=== PATIENT | male | born 1975 | race African-American/Black ===

== ENCOUNTER 2023-03-12 03:37 | Emergency (ER) | payer MEDICAID, SELFPAY ==
--- NOTE | ~2023-03-12 | XR_ITS ---
EXAMINATION: XR PELVIS CLINICAL INFORMATION: Pain. COMPARISON: None available. TECHNIQUE: AP view of the pelvis. FINDINGS: No acute fracture or subluxation. Symmetric SI joints. Pelvic rami and pubic symphysis are maintained. Small os acetabula/osteophyte adjacent to the right superior acetabulum. No significant soft tissue abnormality. XR/XR pelvis 1-2V IMPRESSION: 1. No acute fracture or subluxation. 2. Small os acetabula/osteophyte adjacent to the right superior acetabulum.
--- NOTE | ~2023-03-12 | CT_ITS ---
EXAMINATION: CT HEAD WITHOUT CONTRAST CLINICAL INFORMATION: Headache. COMPARISON: None available. TECHNIQUE: Contiguous axial imaging was performed from the skull base to vertex without intravenous administration of contrast. This CT examination was performed using dose optimization techniques as appropriate, variously including the following: *Automated exposure control *Adjustment of mA and/or kV according to patient size (this includes techniques or standardized protocols for targeted exams where dose is matched to indication/reason for exam; i.e. extremities or head) *Use of iterative reconstruction technique DLP: 773.5 mGy-cm FINDINGS: There is no evidence of acute intracranial hemorrhage or territorial infarction. No abnormal mass-effect or midline shift is seen. Tolbert to white matter differentiation is well preserved. No extra-axial fluid collections are identified. The ventricles are normal in size. There is no abnormal attenuation within the brain parenchyma. The osseous structures and soft tissues are normal. The mastoid air cells and visualized portions of the paranasal sinuses are well-aerated. CT/CT head/brain wo IV con IMPRESSION: No acute intracranial pathology.
[2023-03-12 03:48] VITALS: BP 120/77; PULSE 88; RESP 16; TEMP 36.9; O2SAT 94; BMI 21.2
--- NOTE | 2023-03-12 04:11 | MHC.EDTECH ---
Patient brought into triage area,labs,and a urine sample obtained and sent to lab.
[2023-03-12 04:16] LABS: MANUAL DIFF FLAG NO
[2023-03-12 04:20] LABS: Basophils Absolute Auto 0.1 X10*3/uL (0.0-0.2); Basophils Percent Auto 0.6 % (0-2); Eosinophils Absolute Auto 0.1 X10*3/uL (0.0-0.4); Eosinophils Percent Auto 0.9 % (0-4); Hematocrit 40.7 % (42.0-52.0); Hemoglobin 13.5 g/dl (14.0-18.0); Imm Gran Abs Auto 0.02 X10*3/uL (0.00-0.03); Imm Gran Pct Auto 0.2 % (0.0-0.4); Lymphocytes Absolute Auto 2.2 X10*3/uL (1.2-4.9); Lymphocytes Percent Auto 23.9 % (20-40); Mean Corpuscular HGB Conc 33.2 g/dl (31.0-36.0); Mean Corpuscular Hemoglobin 29.6 pg (27.0-33.0); Mean Corpuscular Volume 89.3 fL (80.0-98.0); Mean Platelet Volume 8.9 fL (9.4-12.4); Monocytes Absolute Auto 0.5 X10*3/uL (0.1-1.2); Monocytes Percent Auto 5.8 % (2-11); Neutrophils Absolute Auto 6.2 x10*3/uL (2.0-8.3); Neutrophils Percent Auto 68.6 % (45-73); Platelet Count 302 X10*3/uL (160-400); Red Blood Count 4.56 X10*6/uL (4.60-5.80)
[2023-03-12 04:21] LABS: Appearance Urine Clear; Color Urine Yellow; Glucose Urine UA Negative (Negative); Leukocyte Esterase Urine Negative (Negative); Nitrite Urine Negative (Negative); PH 6.5 (5.0-9.0); Urine Blood Negative (Negative); Urine Ketones 15 mg/dL (Negative); Urine Protein Negative (Neg-Trace)
[2023-03-12 04:26] LABS: Amphetamine Screen Urine Not Detected (Not Detect); Barbiturates, Urine Not Detected (Not Detect); Benzodiazepines Screen Urine Not Detected (Not Detect); Cannabinoid Screen Urine POSITIVE (Not Detect); Cocaine Screen Urine POSITIVE (Not Detect); Fentanyl, urine POSITIVE (Not Detect); Opiate Screen Urine Not Detected (Not Detect); Phencyclidine Screen Urine Not Detected (Not Detect)
[2023-03-12 04:35] LABS: Alanine Aminotransferase 15 U/L (0-40); Albumin Level 4.6 g/dL (3.5-5.0); Alkaline Phosphatase 71 U/L (39-117); Anion Gap 19 (12-20); Aspartate Amino Transferase 19 U/L (5-37); Bilirubin Total 0.7 mg/dL (0.0-1.0); Blood Urea Nitrogen 11 mg/dL (9-16); COVID-19 Test Negative (Negative); Calcium 9.5 mg/dL (8.4-10.2); Carbon Dioxide 23 mmol/L (22-29); Chloride 103 mmol/L (96-108); Creatinine Clr Calc Pharmacy 89.2; Estimated Glomerular Filt Rate > 60; Ethanol < 10 mg/dL; Glucose Random 73 mg/dL (60-115); IDNOW Serial# 152EDE1D; Potassium 4.6 mmol/L (3.3-5.1); Sodium 140 mmol/L (135-145); Total Protein 7.5 g/dL (6.5-8.0)
--- NOTE | 2023-03-12 07:04 | ED.ALCOHOL ---
HPI - Alcohol General Chief Complaint: ETOH/Substance Use Stated Complaint: seeking help Time Seen by Provider: 03/12/23 07:04 Source: patient Mode of arrival: ambulatory Limitations: no limitations History of Present Illness HPI narrative: 47 yo male who states he drinks daily last drink 2 hours ago and sniffs cocaine regularly he just used prior to arrival. The patient denies hx of withdrawal seizures. He wants to go to detox. He has complaints of 3 weeks of burning pain in both hips because he has to walk a lot no trauma or fevers and he has a headache on R side since using cocaine complaint: desires rehab Last drink: Just prior to admission Chronic alcohol use: Yes Previous visits for alcohol intoxication: Yes Recent trauma: No Associated symptoms: other (headache, hip pain) Treatments prior to arrival: none Related Data Allergies Allergy/AdvReac Type Severity Reaction Status Date / Time No Known Allergies Allergy Verified 03/12/23 03:47 Review of Systems Review of Systems: Constitutional : No Fever, No Chills, No Fatigue ENT/Mouth : No sore throat, No Rhinorrhea Eyes: No Eye Pain, No Swelling, No Redness Cardiovascular : No Chest Pain, No SOB, No Dyspnea on Exertion Respiratory : No Cough, No Sputum Gastrointestinal : No Nausea, No Vomiting, No Diarrhea, No abdominal Pain Genitourinary : No Dysuria, No Urinary Frequency, No Hematuria, Musculoskeletal : pos joint pain, No Myalgias, No Joint Swelling Skin : No Skin Lesions, No rash Neuro : No Weakness, No Numbness, No Dizziness, positive Headache Psych : No Anxiety/Panic, No Depression Heme/Lymph: No Bruising, No Bleeding,No Lymphadenopathy Endocrine : No Polyuria, No Polydipsia All other systems reviewed and are negative [facility] Past Medical History Attestation statement: The following information was validated with the patient. Medical History Active substance abuse Social History Social History (Updated 03/12/23 @ 07:36 by Lilia Norris DO) Alcohol intake: current Patient Tobacco Use Status: Tobacco use Unknown Substance Use Type: Crack/Cocaine and Heroin Advance Directives: No Advance Directives Information Provided: No Physical Exam ED Vital Signs: Vital Signs - 24 hr 03/12/23 03:48 03/12/23 09:30 03/12/23 13:00 Temperature 98.5 F 98 F 98 F Pulse Rate 88 64 65 Respiratory Rate 16 16 16 Blood Pressure 120/77 117/60 115/60 Pulse Oximetry 94 98 98 Oxygen Delivery Method Room Air Room Air Room Air BMI result Body Mass Index 21.2 Appearance: Alert. Oriented X3. No acute distress. Eyes: Pupils equal, round and reactive to light. ENT: Pharynx normal. Neck: Normal inspection. Neck supple. no meningeal signs CVS: Normal heart rate and rhythm. Pulses normal. Respiratory: No respiratory distress. Breath sounds normal. Abdomen: Soft and nontender. Skin: Skin warm and dry. Normal skin color. Normal skin turgor. Extremities: No lower extremity edema. No calf ttp Neuro: Oriented X 3. No motor deficit. No sensory deficit. Course Course Course Narrative: Physician observation started at 909am. Patient placed in physician observation because the patient needed more time for addiction medicine to evaluate the patient At the time observation was started the patient's vitals were stable, patient is alert and oriented , Neuro: nonfocal, CV RRR, Lungs clear Reevaluation(s) Reevaluation #1: Physician observation ended at 224pm. Patient seen and cleared by recovery he is to go to [facility] now. NAD, lungs clear, CV RRR, Abd nontender, Neuro intact. Medical Decision Making Medical Decision Making [facility] Narrative: 47 yo male with drug abuse and ETOH abuse wants detox - he does not use IVDA just snorts. He is here with 3 weeks of hip pain when he walks denies fevers and does not inject will obtain xray he reports overuse and walking a lot. Doubt infection or septic joint. He also c/o headache after cocaine use tonight BP is 120/77 so hemorrhage is less likely ativan and tylenol ordered CT scan within 6 hours ordered. will refer to addiction medicine Differential Diagnosis Differential Diagnoses: The differential diagnosis associated with the presentation includes drug abuse, ICH, arthritis Admission/Observation Consideration of admission/observation: Escalation of care including admission/observation considered Consult Healthcare Provider Management of the patient was discussed with: Benzol Still Operator Lab Data [facility] Lab Attestation statement: I reviewed the patient's lab results. 03/12/23 04:10 03/12/23 04:10 Labs: Lab Results 03/12/23 Range/Units 04:10 WBC 9.0 (4.8-10.8) X10*3/uL RBC 4.56 L (4.60-5.80) X10*6/uL Hgb 13.5 L (14.0-18.0) g/dl Hct 40.7 L (42.0-52.0) % MCV 89.3 (80.0-98.0) fL MCH 29.6 (27.0-33.0) pg MCHC 33.2 (31.0-36.0) g/dl RDW 13.0 (11.0-16.0) % Plt Count 302 (160-400) X10*3/uL MPV 8.9 L (9.4-12.4) fL Immature Gran % (Auto) 0.2 (0.0-0.4) % Neut % (Auto) 68.6 (45-73) % Lymph % (Auto) 23.9 (20-40) % [place] % (Auto) 5.8 (2-11) % Eos % (Auto) 0.9 (0-4) % Baso % (Auto) 0.6 (0-2) % Lymph # (Auto) 2.2 (1.2-4.9) X10*3/uL [place] # (Auto) 0.5 (0.1-1.2) X10*3/uL Eos # (Auto) 0.1 (0.0-0.4) X10*3/uL Baso # (Auto) 0.1 (0.0-0.2) X10*3/uL Abs Immat Gran (auto) 0.02 (0.00-0.03) X10*3/uL Absolute Neuts (auto) 6.2 (2.0-8.3) x10*3/uL Absolute Nucleated RBC 0.000 (0.0-0.012) X10*3/uL Nucleated RBC % (auto) 0.0 (0.0-0.2) /100WBC Sodium 140 (135-145) mmol/L Potassium 4.6 (3.3-5.1) mmol/L Chloride 103 (96-108) mmol/L Carbon Dioxide 23 (22-29) mmol/L Anion Gap 19 (12-20) BUN 11 (9-16) mg/dL Creatinine 0.95 (0.5-1.4) mg/dL Estim Creat Clear Calc 89.2 Estimated GFR > 60 Random Glucose 73 (60-115) mg/dL Calcium 9.5 (8.4-10.2) mg/dL Total Bilirubin 0.7 (0.0-1.0) mg/dL AST 19 (5-37) U/L ALT 15 (0-40) U/L Alkaline Phosphatase 71 (39-117) U/L Total Protein 7.5 (6.5-8.0) g/dL Albumin 4.6 (3.5-5.0) g/dL Urine Color Yellow Urine Appearance Clear Urine pH 6.5 (5.0-9.0) Ur Specific [place] 1.020 (1.005-1.025) Urine Protein Negative (Neg-Trace) mg/dL Urine Glucose (UA) Negative (Negative) mg/dL Urine Ketones 15 (Negative) mg/dL Urine Blood Negative (Negative) Urine Nitrite Negative (Negative) Ur Leukocyte Esterase Negative (Negative) Urine Opiates Screen Not Detected (Not Detect) Urine Fentanyl Screen POSITIVE H (Not Detect) Ur Barbiturates Screen Not Detected (Not Detect) Ur Phencyclidine Scrn Not Detected (Not Detect) Ur Amphetamines Screen Not Detected (Not Detect) U Benzodiazepines Scrn Not Detected (Not Detect) Urine Cocaine Screen POSITIVE H (Not Detect) U Marijuana (THC) Screen POSITIVE H (Not Detect) Ethyl Alcohol < 10 mg/dL COVID-19 ([facility]) Negative (Negative) COVID-19 Clin Com See Note Independent Interpretation I performed an independent interpretation of an: CT Scan Radiology Impression Discussion of test interpretation with radiology: I have reviewed the radiologist's reading. Social Determinants Patient?s care significantly limited by Social Determinants of Health including: Problems related to primary support group Medications Administered Discontinued Medications Generic Name Dose Route Start Last Admin Trade Name Freq PRN Reason Stop Dose Admin Acetaminophen 650 mg 03/12/23 07:13 03/12/23 07:35 Acetaminophen 325 Mg Tablet PO 03/12/23 07:14 650 mg ONCE ONE Administration Lorazepam 1 mg 03/12/23 07:13 03/12/23 07:35 Lorazepam 1 Mg Tablet PO 03/12/23 07:14 1 mg ONCE ONE Administration Discharge Plan Discharge Clinical Impression: Polysubstance abuse Patient Disposition: Home, Self-Care Instructions: Polysubstance Abuse (ED) Additional Instructions: xray no acute findings. CT head negative. labs reassuring
--- NOTE | 2023-03-12 07:26 | PC.NURSE ---
Resumed care of patient at this time, pt reported to Dr. Norris that they had a boateng/Hip pain, CT/Xray ordered at this time, along with medications per APR. Pt resting comfortably at this time.
[2023-03-12] MEDS: Acetaminophen 325 MG TABLET 650 MG PO (07:35)
[2023-03-12] MEDS: LORazepam 1 MG TABLET PO (07:35)
[2023-03-12 09:30] VITALS: BP 117/60; PULSE 64; RESP 16; TEMP 36.6; O2SAT 98
--- NOTE | 2023-03-12 09:30 | PC.NURSE ---
calm, coop. no si. vss. no resp distress. in green gown. no distress.
--- NOTE | 2023-03-12 10:00 | PC.NURSE ---
CARE team Danielle spoken with in person to notify pt reported vague HI without intention or thoughts of specific plans, states can remain safe at this time and will notify staff if has any plan.
--- NOTE | 2023-03-12 12:08 | MHC.RECOVRN ---
T/W met with pt per provider request to assess for detox appropriateness. Pt is requesting detox and is willing to go out of area. He reports that he needs detox from alcohol. He reports that he currently drinks 12 nips/day and has been drinking since age 15. He also reports that he ocassionally uses cocaine and opiates. No further information shared on this. Pt did test positive for fentanyl, cocaine and marijuana. Pt appears to be resting comfortably currently. Only discomfort is a headache and chronic hip pain. T/W sent referral for ATS to [facility] for review. Awaiting decision.
[2023-03-12 13:00] VITALS: BP 115/60; PULSE 65; RESP 16; TEMP 36.6; O2SAT 98
[2023-03-12] MEDS: Ibuprofen 600 MG TABLET PO (14:33)
== END 2023-03-12 14:54 | disposition home or self-care (01) ==
PROVIDERS: Emergency Provider Emergency Medicine
DX: F14.10 Cocaine abuse, uncomplicated (principal); R51.9 Headache, unspecified; R10.2 Pelvic and perineal pain; Z11.52 Encounter for screening for COVID-19; Z79.899 Other long term (current) drug therapy
CPT/HCPCS: 36415; 70450; 72170; 80053; 80307; 81003; 85025; 87635; 99284; 99285